=== PATIENT | female | born 1970 | race Caucasian/White ===

== ENCOUNTER → 2025-04-01 | Day surgery (SDC) | payer OTHER | END | disposition home or self-care (01) | LOC: JMAMMO-SUR 10:21 | PROVIDERS: ATTEND Nurse Practitioner Adult Health | PROC: 0H9U3ZX Drainage of Left Breast, Percutaneous Approach, Diagnostic (ICD-10-PCS; principal; 2025-04-01) | DX: N63.20 Unspecified lump in the left breast, unspecified quadrant (principal) | CPT/HCPCS: 19083; 76942-TC; 77065-TC; 87899; A4648 ==